=== PATIENT | female | born 1980 | race Two or more races ===

== ENCOUNTER 2022-11-20 12:41 | Inpatient (IN) | payer OTHER ==
[2022-11-20 13:40] VITALS: BMI 25.0
[2022-11-20] MEDS ORDERED: LOPERAMIDE HCL 2 MG CAPSULE PO PRN (18:03)
[2022-11-20] MEDS ORDERED: P-EPHED 60MG/TRIPROLIDI 2.5MG TABLET PO PRN (18:03)
[2022-11-20] MEDS ORDERED: BENZOCAINE/MENTHOL (CHLORASEPTIC ) LOZENGE MM PRN (18:03)
[2022-11-20] MEDS ORDERED: NALOXONE HCL 0.4 MG/ML VIAL IM PRN (18:03)
[2022-11-20] MEDS ORDERED: BENZONATATE 200 MG CAPSULE PO PRN (18:03)
[2022-11-20] MEDS ORDERED: BISMUTH SUBSALICYLATE 524 MG/30 ML PO PRN (18:03)
[2022-11-20] MEDS ORDERED: guaiFENesin 600 MG TABLET.ER (FP) PO PRN (18:03)
[2022-11-20] MEDS ORDERED: ONDANSETRON *ODT* 4 MG TABLET SL PRN (18:03)
[2022-11-20] MEDS ORDERED: IBUPROFEN 400 MG TABLET (FP) PO PRN (18:03)
[2022-11-20] MEDS ORDERED: ACETAMINOPHEN 325 MG TABLET (FP) PO PRN (18:03)
[2022-11-20] MEDS ORDERED: MAGNESIUM HYDROX 2400MG/30ML ORAL SUSPENSION 30 ML CUP PO PRN (18:03)
[2022-11-20] MEDS ORDERED: NALOXONE HCL (KLOXXADO) 8 MG SPRAY NS PRN (18:03)
[2022-11-20] MEDS ORDERED: IBUPROFEN 600 MG TABLET (FP) PO PRN (18:03)
[2022-11-20] MEDS ORDERED: DICYCLOMINE HCL 10 MG CAPSULE PO PRN (18:03)
[2022-11-20] MEDS ORDERED: POLYETHYLENE GLYCOL (HEALTHYLAX) 3350 17 GM PACKET PO PRN (18:03)
[2022-11-20] MEDS ORDERED: MAG HYDROX/AL HYDROX/SIMETH 30 ML UNIT-DOSE CUP PO PRN (18:03)
[2022-11-20] MEDS ORDERED: diazePAM 5 MG TABLET PO ONE (18:05)
[2022-11-20] MEDS ORDERED: cloNIDine HCL 0.1 MG TABLET PO PRN (18:06)
[2022-11-20] MEDS: ALBUTEROL SO4 HFA INHALER IH PRN (19:20)
[2022-11-20] MEDS: diazePAM 5 MG TABLET PO PRN (19:22)
[2022-11-20] MEDS: NICOTINE POLACRILEX 2 MG GUM BUC PRN (19:24)
[2022-11-20] MEDS ORDERED: methaDONE HCL 10 MG TABLET (FOR DETOX USE ONLY) PO ONE (20:00)
[2022-11-20] MEDS: METHOCARBAMOL 500 MG TABLET PO PRN (21:58)
[2022-11-20] MEDS: hydrOXYzine PAMOATE 25 MG CAPSULE (FP) PO PRN (21:58)
[2022-11-20] MEDS: levETIRAcetam 500 MG TABLET (FP) PO SCH (21:58)
[2022-11-20] MEDS: THIAMINE HCL 100 MG TABLET (FP) PO SCH (21:59)
[2022-11-20] MEDS ORDERED: MELATONIN 5 MG TABLETS PO SCH (22:00)
[2022-11-20] MEDS: diazePAM 5 MG TABLET PO SCH (22:01)
[2022-11-20] MEDS: BUDESONIDE/FORMETEROL FUMARATE 160/4.5 mcg INHALER IH SCH (22:10)
[2022-11-21] MEDS: diazePAM 5 MG TABLET PO SCH ×4 (05:44→22:10)
[2022-11-21] MEDS: ALBUTEROL SO4 HFA INHALER IH PRN ×5 (05:46→22:10)
[2022-11-21] MEDS ORDERED: MONTELUKAST NA 10 MG TABLET PO SCH (10:00)
[2022-11-21] MEDS: PRENATAL VITAMINS W/ FOLIC ACID TABLET (FP) PO SCH (10:17)
[2022-11-21] MEDS: METHOCARBAMOL 500 MG TABLET PO PRN ×2 (10:17→17:17)
[2022-11-21] MEDS: levETIRAcetam 500 MG TABLET (FP) PO SCH ×2 (10:17→23:34)
[2022-11-21] MEDS: BUDESONIDE/FORMETEROL FUMARATE 160/4.5 mcg INHALER IH SCH ×2 (10:18→22:11)
[2022-11-21] MEDS: NICOTINE POLACRILEX 2 MG GUM BUC PRN (10:36)
[2022-11-21 12:24] LABS: HEMATOCRIT 40.1 % (32.4-45.2); HEMOGLOBIN 13.4 GM/dL (10.7-15.3); MCHC 33.5 g/dl (32.0-36.0); MEAN CELL VOLUME 98.7 fl (80-96); MEAN PLT VOLUME 7.8 fl (7.5-11.1); PLATELET COUNT 287 10^3/uL (134-434); RBC 4.06 M/mm3 (3.60-5.2); RDW 13.3 % (11.6-15.6); WHITE BLOOD COUNT 6.7 K/mm3 (4.0-10.0)
[2022-11-21 12:26] LABS: POTASSIUM 4.3 mmol/L (3.5-5.1)
[2022-11-21 12:43] LABS: CALCIUM 9.4 mg/dL (8.5-10.1)
[2022-11-21 12:44] LABS: ALBUMIN 3.3 g/dl (3.4-5.0); BLOOD UREA NITROGEN 11.2 mg/dL (7-18); CREATININE 0.9 mg/dL (0.55-1.3)
[2022-11-21 12:45] LABS: BILIRUBIN,TOTAL 0.4 mg/dL (0.2-1)
[2022-11-21 12:46] LABS: TOT PROT 6.4 g/dl (6.4-8.2)
[2022-11-21] MEDS: NICOTINE 21 MG/24 HOURS TOPICAL PATCH TD PRN (17:31)
[2022-11-21] MEDS: THIAMINE HCL 100 MG TABLET (FP) PO SCH (22:08)
[2022-11-21] MEDS: SUVOREXANT 10 MG TABLET PO PRN (22:09)
[2022-11-21] MEDS: MONTELUKAST NA 10 MG TABLET PO SCH (22:11)
[2022-11-22] MEDS: METHOCARBAMOL 500 MG TABLET PO PRN ×3 (02:14→19:26)
[2022-11-22] MEDS: ALBUTEROL SO4 HFA INHALER IH PRN ×2 (02:15→12:19)
[2022-11-22] MEDS: diazePAM 5 MG TABLET PO SCH ×3 (06:04→21:53)
[2022-11-22] MEDS: NICOTINE 21 MG/24 HOURS TOPICAL PATCH TD PRN (08:42)
[2022-11-22] MEDS ORDERED: methaDONE HCL 10 MG TABLET (FOR DETOX USE ONLY) PO ONE (10:00)
[2022-11-22] MEDS: BUDESONIDE/FORMETEROL FUMARATE 160/4.5 mcg INHALER IH SCH ×2 (10:31→21:51)
[2022-11-22] MEDS: PRENATAL VITAMINS W/ FOLIC ACID TABLET (FP) PO SCH (10:31)
[2022-11-22] MEDS: hydrOXYzine PAMOATE 25 MG CAPSULE (FP) PO PRN ×2 (10:31→21:52)
[2022-11-22] MEDS: levETIRAcetam 500 MG TABLET (FP) PO SCH ×2 (10:31→21:53)
[2022-11-22] MEDS: diazePAM 5 MG TABLET PO PRN (12:22)
[2022-11-22] MEDS ORDERED: ALBUTEROL SO4 2.5/IPRATROPIUM 0.5 INH SOL 3 ML VIAL.NEB. NEB PRN (13:36)
[2022-11-22] MEDS: NICOTINE POLACRILEX 4 MG GUM BUC PRN ×2 (14:42→19:27)
[2022-11-22] MEDS ORDERED: predniSONE 20 MG TABLET (UD) PO ONE (15:00)
[2022-11-22] MEDS: THIAMINE HCL 100 MG TABLET (FP) PO SCH (21:52)
[2022-11-22] MEDS: MONTELUKAST NA 10 MG TABLET PO SCH (21:53)
[2022-11-23] MEDS: diazePAM 5 MG TABLET PO SCH ×2 (05:41→17:19)
[2022-11-23] MEDS: ALBUTEROL SO4 HFA INHALER IH PRN ×3 (08:43→22:29)
[2022-11-23] MEDS ORDERED: predniSONE 10 MG TABLET (UD) PO ONE (10:00)
[2022-11-23] MEDS: hydrOXYzine PAMOATE 25 MG CAPSULE (FP) PO PRN ×2 (10:13→22:08)
[2022-11-23] MEDS: PRENATAL VITAMINS W/ FOLIC ACID TABLET (FP) PO SCH (10:13)
[2022-11-23] MEDS: METHOCARBAMOL 500 MG TABLET PO PRN ×2 (10:13→22:08)
[2022-11-23] MEDS: levETIRAcetam 500 MG TABLET (FP) PO SCH ×2 (10:14→22:09)
[2022-11-23] MEDS: BUDESONIDE/FORMETEROL FUMARATE 160/4.5 mcg INHALER IH SCH ×2 (10:15→22:06)
[2022-11-23] MEDS: NICOTINE 21 MG/24 HOURS TOPICAL PATCH TD PRN (10:19)
[2022-11-23] MEDS: diazePAM 5 MG TABLET PO PRN (11:40)
[2022-11-23] MEDS: MONTELUKAST NA 10 MG TABLET PO SCH (22:07)
[2022-11-23] MEDS: SUVOREXANT 10 MG TABLET PO PRN (22:08)
[2022-11-23] MEDS: THIAMINE HCL 100 MG TABLET (FP) PO SCH (22:08)
[2022-11-24] MEDS: ALBUTEROL SO4 HFA INHALER IH PRN ×3 (05:36→15:50)
[2022-11-24] MEDS ORDERED: diazePAM 5 MG TABLET PO ONE (06:00)
[2022-11-24] MEDS: hydrOXYzine PAMOATE 25 MG CAPSULE (FP) PO PRN ×2 (09:23→17:05)
[2022-11-24] MEDS: METHOCARBAMOL 500 MG TABLET PO PRN ×2 (09:23→17:04)
[2022-11-24] MEDS: PRENATAL VITAMINS W/ FOLIC ACID TABLET (FP) PO SCH (09:23)
[2022-11-24] MEDS: levETIRAcetam 500 MG TABLET (FP) PO SCH (09:23)
[2022-11-24] MEDS: NICOTINE 21 MG/24 HOURS TOPICAL PATCH TD PRN (09:28)
[2022-11-24] MEDS: BUDESONIDE/FORMETEROL FUMARATE 160/4.5 mcg INHALER IH SCH (09:30)
[2022-11-24] MEDS ORDERED: methaDONE HCL 10 MG TABLET (FOR DETOX USE ONLY) PO ONE (10:00)
[2022-11-24] MEDS ORDERED: predniSONE 10 MG TABLET (UD) PO ONE (10:00)
[2022-11-24 19:07] VITALS: BP 123/89; PULSE 98; RESP 18; TEMP 97.6
[2022-11-24] MEDS ORDERED: SUVOREXANT 10 MG TABLET PO PRN (22:00)
[2022-11-25] MEDS ORDERED: predniSONE 10 MG TABLET (UD) PO ONE (10:00)
== END 2022-11-24 19:20 | disposition home or self-care (01) | DRG 773 ==
LOC: YASAS 12:41 → Y6N 18:44
PROVIDERS: ADMIT Allergy & Immunology; ATTEND Surgery
PROC: HZ2ZZZZ Detoxification Services for Substance Abuse Treatment (ICD-10-PCS; principal; 2022-11-20)
DX: F11.23 Opioid dependence with withdrawal (principal); F13.230 Sedative, hypnotic or anxiolytic dependence with withdrawal, uncomplicated; F17.210 Nicotine dependence, cigarettes, uncomplicated; F19.282 Other psychoactive substance dependence with psychoactive substance-induced sleep disorder; F19.280 Other psychoactive substance dependence with psychoactive substance-induced anxiety disorder; F41.0 Panic disorder [episodic paroxysmal anxiety]; F41.9 Anxiety disorder, unspecified; E06.3 Autoimmune thyroiditis; E04.9 Nontoxic goiter, unspecified; J45.909 Unspecified asthma, uncomplicated; Z28.310 Unvaccinated for COVID-19; Z28.9 Immunization not carried out for unspecified reason
CPT/HCPCS: 36415; 80053; 81025; 83036; 85027; 86780; 87635